=== PATIENT | male | born 1965 | race Caucasian/White ===

== ENCOUNTER 2018-12-06 05:22 | Day surgery (SDC) | payer MEDICAID ==
[~2018-12-06] VITALS: Ht 182.9 cm; Wt 74.8 kg
[2018-12-06 06:23] LABS: *AMPHETAMINES SCREEN URINE NEGATIVE (NEGATIVE)
[2018-12-06 06:24] LABS: *BARBITURATES SCREEN URINE NEGATIVE (NEGATIVE); *BENZODIAZEPINES SCREEN URINE NEGATIVE (NEGATIVE); *COCAINE SCREEN URINE NEGATIVE (NEGATIVE); CANNABINOID URINE SCREEN NEGATIVE (NEGATIVE); METHADONE URINE SCREEN NEGATIVE (NEGATIVE); OPIATES URINE SCREEN NEGATIVE (NEGATIVE); PHENCYCLIDINE URINE SCREEN NEGATIVE (NEGATIVE)
[2018-12-06] MEDS: LACTATED RINGERS 1,000 ML IV SCH ×2 (06:50→07:01)
[2018-12-06] MEDS ORDERED: MIRT15TA PO (07:02)
[2018-12-06] MEDS ORDERED: LISI-604 PO (07:02)
[2018-12-06] MEDS ORDERED: AMLO-375 PO (07:02)
[2018-12-06] MEDS ORDERED: FLUT9.9S NS (07:02)
[2018-12-06] MEDS ORDERED: CETI10CA2 PO (07:02)
[2018-12-06] MEDS ORDERED: LEVO25TA7 PO (07:02)
[2018-12-06] MEDS ORDERED: OMEG100017 PO (07:02)
[2018-12-06] MEDS ORDERED: ATOR20TA65 PO ×2 (07:02→07:15)
[2018-12-06] MEDS ORDERED: SKIN ADHESIVE 0.7 GM EA TOP ONE (07:06)
[2018-12-06] MEDS ORDERED: MINERAL OIL 10 ML VIAL MC ONE (07:06)
[2018-12-06] MEDS ORDERED: BUPIVACAINE HCL 0.5% (5MG/ML) 50ML ONE (07:07)
[2018-12-06] MEDS ORDERED: AMLO5TAB88 PO (07:15)
[2018-12-06] MEDS ORDERED: FENTANYL CITRATE/PF 50MCG/ML 2ML VIAL ONE (07:40)
[2018-12-06] MEDS ORDERED: MIDAZOLAM HCL 2 MG/2 ML VIAL ONE (07:40)
[2018-12-06] MEDS ORDERED: GLYCOPYRROLATE 0.2 MG/ML 2ML VIAL ONE ×2 (07:40→08:54)
[2018-12-06] MEDS ORDERED: PROPOFOL 200MG/20ML VIAL IV ONE (07:40)
[2018-12-06] MEDS ORDERED: NEOSTIGMINE METHYLSULFATE 1MG/ML 10 ML VIAL ONE ×2 (07:40→08:54)
[2018-12-06] MEDS ORDERED: ROCURONIUM BROMIDE 10MG/ML VIAL 5ML IV ONE (07:40)
[2018-12-06] MEDS ORDERED: NORMAL SALINE 0.9% 10 ML SYR ONE (07:50)
[2018-12-06] MEDS ORDERED: DEXAMETHASONE 4MG/ML 1ML VIAL ONE (07:51)
[2018-12-06] MEDS ORDERED: ONDANSETRON HCL 4MG/2ML INJ ONE (07:51)
[2018-12-06] MEDS ORDERED: HYDROMORPHONE HCL/PF 2MG/ML CPJ IV PRN (08:00)
[2018-12-06] MEDS ORDERED: ONDANSETRON HCL 4MG/2ML INJ IV PRN ×2 (08:00→08:30)
[2018-12-06] MEDS ORDERED: LABETALOL 5MG/ML SYR 20 MG/4 ML SYRINGE IV PRN (08:00)
[2018-12-06] MEDS ORDERED: MEPERIDINE HCL/PF 25MG/ML CPJ IV PRN ×2 (08:00→08:30)
[2018-12-06] MEDS ORDERED: MORPHINE SULFATE 4 MG/ML CPJ (NOT FOR IM USE) IV PRN (08:30)
[2018-12-06] MEDS ORDERED: FENTANYL CITRATE/PF 50MCG/ML 2ML VIAL IV PRN (08:30)
[2018-12-06] MEDS ORDERED: METOCLOPRAMIDE HCL 10MG/2ML VIAL ONE (08:58)
[2018-12-06] MEDS: HYDROMORPHONE HCL/PF 2MG/ML CPJ IV PRN ×3 (09:36→09:56)
[2018-12-06] MEDS ORDERED: HYDROCODONE/ACETAMINOPHEN 5/325MG TABLET PO PRN (10:15)
[2018-12-06 11:07] VITALS: BP 127/92
== END 2018-12-06 11:50 | disposition home or self-care (01) ==
LOC: OR 05:22
PROVIDERS: ATTEND Surgery
DX: K40.90 Unilateral inguinal hernia, without obstruction or gangrene, not specified as recurrent (principal); I10 Essential (primary) hypertension; E03.9 Hypothyroidism, unspecified; F32.9 Major depressive disorder, single episode, unspecified; F14.11 Cocaine abuse, in remission; F15.11 Other stimulant abuse, in remission; E78.00 Pure hypercholesterolemia, unspecified; G43.909 Migraine, unspecified, not intractable, without status migrainosus; Z79.899 Other long term (current) drug therapy; Z88.8 Allergy status to other drugs, medicaments and biological substances
CPT/HCPCS: 49650; 80305; C1781; G0168; J1100; J1170; J2250; J2405; J2704; J2710; J2765; J3010; J3490